=== PATIENT | male | born 2000 | race Caucasian/White ===

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

== ENCOUNTER 2021-10-07 22:47 | Observation (INO) | payer BC, MEDICAID, OTHER ==
[~2021-10-07] VITALS: Ht 177 cm; Wt 57.2 kg
[2021-10-07] MEDS ORDERED: LORazepam 0.5 MG (ATIVAN) TABLET BC STA (22:53)
[2021-10-07] MEDS ORDERED: PANTOPRAZOLE 40 MG (PROTONIX) VIAL IV ONE (23:00)
[2021-10-07] MEDS ORDERED: ONDANSETRON 4 MG/2 ML (SDV) Z0FRAN IVP ONE (23:00)
[2021-10-07 23:13] LABS: BASOPHILS # (AUTO) 0.1 10^3/uL (0.0-0.1); BASOPHILS % (AUTO) 1 % (0-10); EOSINOPHILS # (AUTO) 0.2 10^3/uL (0.0-0.3); EOSINOPHILS % (AUTO) 2 % (0-10); HEMATOCRIT 43 % (40-54); HEMOGLOBIN 15.6 g/dL (13.3-17.7); LYMPHOCYTES # (AUTO) 2.4 10^3/uL (1.0-4.0); LYMPHOCYTES % (AUTO) 21 % (12-44); MEAN CORPUSCULAR HEMOGLOBIN 33 pg (25-34); MEAN CORPUSCULAR HGB CONC 36 g/dL (32-36); MEAN CORPUSCULAR VOLUME 91 fL (80-99); MEAN PLATELET VOLUME 9.9 fL (9.0-12.2); MONOCYTES # (AUTO) 0.9 10^3/uL (0.0-1.0); MONOCYTES % (AUTO) 8 % (0-12); NEUTROPHILS % (AUTO) 69 % (42-75); PLATELET COUNT 269 10^3/uL (130-400); WHITE BLOOD COUNT 11.6 10^3/uL (4.3-11.0)
[2021-10-07 23:16] LABS: ALBUMIN 4.8 GM/DL (3.2-4.5); CHLORIDE 104 MMOL/L (98-107); POTASSIUM 2.9 MMOL/L (3.6-5.0); SODIUM 142 MMOL/L (135-145)
[2021-10-07 23:18] LABS: CALCIUM 9.7 MG/DL (8.5-10.1)
[2021-10-07 23:19] LABS: GLUCOSE 96 MG/DL (70-105); INR 1.1 (0.8-1.4); PROTHROMBIN TIME PATIENT 14.1 SEC (12.2-14.7); TOTAL PROTEIN 7.8 GM/DL (6.4-8.2)
[2021-10-07 23:20] LABS: CARBON DIOXIDE 23 MMOL/L (21-32)
[2021-10-07 23:21] LABS: BILIRUBIN,TOTAL 0.8 MG/DL (0.1-1.0)
[2021-10-07 23:22] LABS: ALKALINE PHOSPHATASE 55 U/L (40-136)
[2021-10-07 23:23] LABS: CREATININE SERUM 1.23 MG/DL (0.60-1.30); GFR ESTIMATED 86
[2021-10-07 23:24] LABS: BUN/CREATININE RATIO 9
[2021-10-07 23:25] LABS: ALANINE AMINOTRANSFERASE 9 U/L (0-55); MAGNESIUM 2.2 MG/DL (1.6-2.4)
[2021-10-07 23:26] LABS: LIPASE 18 U/L (8-78)
[2021-10-08 00:29] LABS: OCCULT BLOOD,GASTRIC FLUID POSITIVE (NEGATIVE)
[2021-10-08] MEDS ORDERED: fentaNYL INJ 100 MCG/2 ML AMP IVP ONE (00:30)
[2021-10-08] MEDS ORDERED: POTASSIUM CL 10MEQ/50ML IVPB 50 ML IV ONE (00:45)
[2021-10-08] MEDS ORDERED: NS IV 1000 ML 1,000 ML IV ONE (00:45)
[2021-10-08] MEDS ORDERED: morphine INJ 10 MG/ML 1ML (SYR OR VIAL) IVP STA (02:01)
--- NOTE | 2021-10-08 02:11 | ED GI ---
General Chief Complaint: Abdominal/GI Problems Stated Complaint: VOMITING BLOOD Nursing Triage Note: pt to room by [facility]. pt states he vomited once this evening while in the shower. pt states it was blood tinged but mostly bile. pt states he has had nausea, abd pain for a week. states he is very anxious on arrival. Source of Information: Patient, EMS Exam Limitations: No Limitations History of Present Illness Date Seen by Provider: Oct 07, 2021 Time Seen by Provider: 22:48 Initial Comments This 21-year-old young man presents to the emergency room with upper abdominal pain and hematemesis that started after he smoked some marijuana. He has had some nausea and abdominal discomfort for about a week. He reports having a thorough work-up at a hospital in [facility] in July during which he had elevated transaminases. He reports testing for hepatitis was negative. He reports having EGD and colonoscopy during that visit as well. Eventually the transaminases improved and he was discharged. This occurred while he was in the and he has subsequently been discharged from service. Patient arrives via EMS. He is in distress with anxiety and is tremoring. He appears pale. Vital signs are stable. He has not established with a primary care provider or surgeon since returning from the . Allergies and Home Medications Allergies Coded Allergies: No Known Drug Allergies (Unverified , 02/27/17) Patient Home Medication List Home Medication List Reviewed: Yes No Active Prescriptions or Reported Meds Review of Systems Review of Systems Constitutional: see HPI EENTM: Other (Sore throat from vomiting) Respiratory: No Symptoms Reported Cardiovascular: No Symptoms Reported Gastrointestinal: See HPI Genitourinary: No Symptoms Reported Musculoskeletal: no symptoms reported Skin: see HPI Psychiatric/Neurological: See HPI Endocrine: No Symptoms Reported Hematologic/Lymphatic: No Symptoms Reported Past Qqqqvyh-Kszjlq-Wtxjpx Hx Patient Social History Tobacco Use?: Yes Tobacco type used: Cigarettes Smoking Status: Current Everyday Smoker Use of E-Cig and/or Vaping dev: No Substance use?: Yes Substance type: Marijuana Substance frequency: Several times a month Alcohol Use?: No Immunizations Up To Date Tetanus Booster (TDap): Less than 5yrs PED Vaccines UTD: Yes Seasonal Allergies Seasonal Allergies: No Past Medical History Surgeries: Yes Abdominal (EGD and colonoscopy) Respiratory: No Cardiac: No Neurological: No Genitourinary: No Gastrointestinal: Yes Liver Disease/Jaundice (Prior history of elevated transaminases) Musculoskeletal: No Endocrine: No HEENT: No Cancer: No Psychosocial: No Integumentary: No Blood Disorders: No Family Medical History No Pertinent Family Hx Physical Exam Vital Signs Vital Signs - First Documented 10/07/21 10/08/21 22:47 01:47 Temp 36.2 Pulse 103 Resp 22 B/P (MAP) 123/85 (98) Pulse Ox 99 O2 Delivery Room Air Capillary Refill : Height/Weight/BMI Height: 5'9.00" Weight: 120lbs. oz. 54.900147tu; 17.00 BMI Method:Stated General Appearance: WD/WN, moderate distress HEENT: PERRL/EOMI, normal ENT inspection, pharynx normal Neck: normal inspection Respiratory: lungs clear, normal breath sounds, no respiratory distress Cardiovascular: regular rate, rhythm, no edema, no murmur Gastrointestinal: normal bowel sounds, soft, tenderness (Upper abdomen) Extremities: normal inspection, no pedal edema Neurologic/Psychiatric: wax pattern repairer II-XII nml as tested, no motor/sensory deficits, alert, oriented x 3, other (Anxious, tremoring) Skin: normal color, warm/dry Progress/Results/Core Measures Results/Orders Lab Results Laboratory Tests Test 10/07/21 22:52 10/08/21 00:09 Range/Units White Blood Count 11.6 H 4.3-11.0 10^3/uL Red Blood Count 4.74 4.30-5.52 10^6/uL Hemoglobin 15.6 13.3-17.7 g/dL Hematocrit 43 40-54 % Mean Corpuscular Volume 91 80-99 fL Mean Corpuscular Hemoglobin 33 25-34 pg Mean Corpuscular Hemoglobin Concent 36 32-36 g/dL Red Cell Distribution Width 11.9 10.0-14.5 % Platelet Count 269 130-400 10^3/uL Mean Platelet Volume 9.9 9.0-12.2 fL Immature Granulocyte % (Auto) 0 % Neutrophils (%) (Auto) 69 42-75 % Lymphocytes (%) (Auto) 21 12-44 % Monocytes (%) (Auto) 8 0-12 % Eosinophils (%) (Auto) 2 0-10 % Basophils (%) (Auto) 1 0-10 % Neutrophils # (Auto) 8.0 H 1.8-7.8 10^3/uL Lymphocytes # (Auto) 2.4 1.0-4.0 10^3/uL Monocytes # (Auto) 0.9 0.0-1.0 10^3/uL Eosinophils # (Auto) 0.2 0.0-0.3 10^3/uL Basophils # (Auto) 0.1 0.0-0.1 10^3/uL Immature Granulocyte # (Auto) 0.0 0.0-0.1 10^3/uL Prothrombin Time 14.1 12.2-14.7 SEC INR Comment 1.1 0.8-1.4 Activated Partial Thromboplast Time 30 24-35 SEC Sodium Level 142 135-145 MMOL/L Potassium Level 2.9 L 3.6-5.0 MMOL/L Chloride Level 104 98-107 MMOL/L Carbon Dioxide Level 23 21-32 MMOL/L Anion Gap 15 H 5-14 MMOL/L Blood Urea Nitrogen 11 7-18 MG/DL Creatinine 1.23 0.60-1.30 MG/DL Estimat Glomerular Filtration Rate 86 BUN/Creatinine Ratio 9 Glucose Level 96 70-105 MG/DL Calcium Level 9.7 8.5-10.1 MG/DL Corrected Calcium 8.5-10.1 MG/DL Magnesium Level 2.2 1.6-2.4 MG/DL Total Bilirubin 0.8 0.1-1.0 MG/DL Aspartate Amino Transf (AST/SGOT) 15 5-34 U/L Alanine Aminotransferase (ALT/SGPT) 9 0-55 U/L Alkaline Phosphatase 55 40-136 U/L C-Reactive Protein High Sensitivity 0.10 0.00-0.50 MG/DL Total Protein 7.8 6.4-8.2 GM/DL Albumin 4.8 H 3.2-4.5 GM/DL Lipase 18 8-78 U/L Serum Alcohol < 10 <10 MG/DL Gastric Fluid Occult Blood POSITIVE H NEGATIVE My Orders Orders - RHINA ROMANO MD Ondansetron Injection (Zofran Injectio (10/07/21 23:00) Pantoprazole Injection (Protonix Injecti (10/07/21 23:00) Lorazepam Tablet (Ativan Tablet) (10/07/21 22:53) Alcohol (10/07/21 22:53) Cbc With Automated Diff (10/07/21 22:53) Comprehensive Metabolic Panel (10/07/21 22:53) Hs C Reactive Protein (10/07/21 22:53) Drug Screen Stat (Urine) (10/07/21 22:53) Lipase (10/07/21 22:53) Magnesium (10/07/21 22:53) Protime With Inr (10/07/21 22:53) Partial Thromboplastin Time (10/07/21 22:53) Ua Culture If Indicated (10/07/21 22:53) Occult Blood,Gastric Fluid (10/08/21 00:17) Fentanyl Inj (Sublimaze Injection) (10/08/21 00:30) Ns Iv 1000 Ml (Sodium Chloride 0.9%) (10/08/21 00:45) Potassium Cl 10meq/50ml Ivpb (Kcl 10 Meq (10/08/21 00:45) Morphine Injection (Morphine Injection (10/08/21 02:01) Medications Given in ED Current Medications Medications Dose Ordered Sig/Gemini Route Start Time Stop Time Status Last Admin Dose Admin Fentanyl Citrate 50 mcg ONCE ONCE IVP 10/08/21 00:30 10/08/21 00:31 DC 10/08/21 00:32 50 MCG Ondansetron HCl 4 mg ONCE ONCE IVP 10/07/21 23:00 10/07/21 23:05 DC 10/07/21 23:03 4 MG Pantoprazole 80 mg ONCE ONCE IV 10/07/21 23:00 10/07/21 23:05 DC 10/07/21 23:04 80 MG Potassium Chloride 50 ml @ 50 mls/hr ONCE ONCE IV 10/08/21 00:45 10/08/21 01:44 DC 10/08/21 00:49 50 MLS/HR Sodium Chloride 1,000 ml @ 125 mls/hr Q8H ONCE IV 10/08/21 00:45 10/08/21 08:44 10/08/21 00:49 125 MLS/HR Vital Signs/I&O 10/07/21 10/08/21 22:47 01:47 Temp 36.2 Pulse 103 78 Resp 22 18 B/P (MAP) 123/85 (98) 104/64 Pulse Ox 99 97 O2 Delivery Room Air 10/08/21 00:00 Intake Total 1000 ml Balance 1000 ml Blood Pressure Mean: 77 Progress Progress Note : Progress Note Patient received a liter of IV fluids as administered by EMS. Zofran was given for nausea. Protonix 80 mg IV was administered for GI protection. Fentanyl was given for pain. He was found to be significantly hypokalemic with a potassium of 3.0. IV replacement was initiated in the ER. Gastric Hemoccult was tested in the lab and was positive. Anxiety was treated with buccal Ativan. Given the significance of his symptoms and his significant hypokalemia, admission was appropriate. He will continue with IV replacement of potassium. Dr. Morse was consulted. Departure Communication (Admissions) Time/Spoke to Admitting Phy: 02:00 Dr. Martin Time/Spoke to Consulting Phy: 02:05 Dr. Morse Impression Primary Impression: Hematemesis Qualified Codes: K92.0 - Hematemesis Additional Impressions: Abdominal pain Qualified Codes: R10.10 - Upper abdominal pain, unspecified Hypokalemia Disposition: ADMITTED INPATIENT Condition: Improved Admissions Decision to Admit Reason: Admit from ER (General) Decision to Admit/Date: Oct 08, 2021 Time/Decision to Admit Time: 02:00 Departure-Patient Inst. Referrals: NO,LOCAL PHYSICIAN (PCP/Family) Primary Care Physician Scripts No Active Prescriptions or Reported Meds RHINA ROMANO MD Oct 08, 2021 02:11
[2021-10-08 03:54] VITALS: BP 120/69
[2021-10-08] MEDS ORDERED: NS IV 1000 ML 1,000 ML IV SCH (04:15)
[2021-10-08] MEDS ORDERED: ONDANSETRON 4 MG/2 ML (SDV) Z0FRAN IV PRN (04:15)
[2021-10-08] MEDS: POTASSIUM CL 10MEQ/50ML IVPB 50 ML IV SCH ×4 (04:27→07:38)
[2021-10-08] MEDS: morphine INJ 4 MG/ML 1 ML (VIAL/SYRINGE) IV PRN ×3 (04:32→12:46)
[2021-10-08 08:00] VITALS: BP 114/57
--- NOTE | 2021-10-08 08:02 | Consultation - Surgery ---
TRICIA ROSS 10/08/21 0802: History of Present Illness History of Present Illness Patient Consulted On(arias/time) 10/08/21 07:56 Time Seen by Provider: 07:45 History of Present Illness Pt is a 21yo male who presented to ER early this morning with hematemesis and abdominal pain. 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 He was reportedly worked up for "anything that could be wrong with the liver" including hepatitis. He had an EGD and colonoscopy in [place] that he says didnt reveal anything. Yesterday he started feeling nauseous and throwing up repeatedly, but it wasn't until he saw blood in his vomit that he came to the ER. Denies having any clue what could have caused the vomiting. Denies any sweats/chills or fever recently. Abdominal pain is improved. Allergies and Home Medications Allergies Coded Allergies: No Known Drug Allergies (Unverified , 02/27/17) Patient Home Medication List No Active Prescriptions or Reported Meds Past Spdtxiw-Jxrqrs-Mbtano Hx Patient Social History Smoking Status: Current Everyday Smoker 2nd Hand Smoke Exposure: No Recent Hopitalizations: No Alcohol Use?: No Substance type: Marijuana Have you traveled recently?: No Immunizations Up To Date Tetanus Booster (TDap): Less than 5yrs PED Vaccines UTD: Yes Seasonal Allergies Seasonal Allergies: No Surgeries History of Surgeries: Yes Surgeries: Abdominal (EGD and colonoscopy) Respiratory History of Respiratory Disorde: No Cardiovascular History of Cardiac Disorders: No Neurological History of Neurological Disord: No Genitourinary History of Genitourinary Disor: No Gastrointestinal History of Gastrointestinal Di: Yes Gastrointestinal Disorders: Liver Disease/Jaundice (Prior history of elevated transaminases) Musculoskeletal History of Musculoskeletal Dis: No Endocrine History of Endocrine Disorders: No HEENT History of HEENT Disorders: No Cancer History of Cancer: No Psychosocial History of Psychiatric Problem: No Integumentary History of Skin or Integumenta: No Blood Transfusions History of Blood Disorders: No Family Medical History Significant Family History: No Pertinent Family Hx Review of Systems-General Constitutional: No chills, No diaphoresis Respiratory: No cough Cardiovascular: No chest pain Gastrointestinal: abdominal pain (mild, diffuse), hematemesis, loss of appetite, nausea, vomiting Physical Exam-General Problems Physical Exam Vital Signs Vital Signs - First Documented 10/07/21 10/08/21 22:47 01:47 Temp 36.2 Pulse 103 Resp 22 B/P (MAP) 123/85 (98) Pulse Ox 99 O2 Delivery Room Air Capillary Refill : General Appearance: WD/WN, no apparent distress HEENT: PERRL/EOMI Neck: supple Respiratory: lungs clear, normal breath sounds, no respiratory distress, no accessory muscle use Cardiovascular: regular rate, rhythm, no murmur Gastrointestinal: normal bowel sounds, non tender, soft Extremities: no pedal edema, normal capillary refill Neurologic/Psychiatric: alert, normal mood/affect, oriented x 3 Skin: normal color, warm/dry Lymphatic: no adenopathy (anterior/posterior cervical) Data Review Labs Laboratory Tests 10/07/21 22:52: White Blood Count 11.6H, Red Blood Count 4.74, Hemoglobin 15.6, Hematocrit 43, Mean Corpuscular Volume 91, Mean Corpuscular Hemoglobin 33, Mean Corpuscular Hemoglobin Concent 36, Red Cell Distribution Width 11.9, Platelet Count 269, Mean Platelet Volume 9.9, Immature Granulocyte % (Auto) 0, Neutrophils (%) (Auto) 69, Lymphocytes (%) (Auto) 21, Monocytes (%) (Auto) 8, Eosinophils (%) (Auto) 2, Basophils (%) (Auto) 1, Neutrophils # (Auto) 8.0H, Lymphocytes # (Auto) 2.4, Monocytes # (Auto) 0.9, Eosinophils # (Auto) 0.2, Basophils # (Auto) 0.1, Immature Granulocyte # (Auto) 0.0, Prothrombin Time 14.1, INR Comment 1.1, Activated Partial Thromboplast Time 30, Sodium Level 142, Potassium Level 2.9L, Chloride Level 104, Carbon Dioxide Level 23, Anion Gap 15H, Blood Urea Nitrogen 11, Creatinine 1.23, Estimat Glomerular Filtration Rate 86, BUN/Creatinine Ratio 9, Glucose Level 96, Calcium Level 9.7, Corrected Calcium , Magnesium Level 2.2, Total Bilirubin 0.8, Aspartate Amino Transf (AST/SGOT) 15, Alanine Aminotransferase (ALT/SGPT) 9, Alkaline Phosphatase 55, C-Reactive Protein High Sensitivity 0.10, Total Protein 7.8, Albumin 4.8H, Lipase 18, Serum Alcohol < 10 10/08/21 00:09: Gastric Fluid Occult Blood POSITIVEH Assessment/Plan Assessment/Plan Assessment/Plan Hematemesis Abdominal pain Hypokalemia Pt receiving IV fluids/electrolytes and is currently not in distress. Possible mirian-bond tear so we will evaluate with EGD today. Need to obtain records from [place] regarding the patients workup a few weeks ago. Recent travel to [place] and large elevation in liver enzymes is concerning for hepatitis, but patient did not seem to be sure if they found anything at [place]. TRUDY MORSE DO 10/08/21 1153: History of Present Illness History of Present Illness Time Seen by Provider: 11:15 History of Present Illness Surgery asked to consult regarding Hematemesis. HPI per ED: This 21-year-old young man presents to the emergency room with upper abdominal pain and hematemesis that started after he smoked some marijuana. He has had some nausea and abdominal discomfort for about a week. He reports having a thorough work-up at a hospital in [facility] in July during which he had elevated transaminases. He reports testing for hepatitis was negative. He reports having EGD and colonoscopy during that visit as well. Eventually the transaminases improved and he was discharged. This occurred while he was in the and he has subsequently been discharged from service. Patient arrives via EMS. He is in distress with anxiety and is tremoring. He appears pale. Vital signs are stable. He has not established with a primary care provider or surgeon since returning from the . When I spoke to pt this am, he stated that he hasn't had a vomiting episode since appx August 07. He had some abdominal pain start after vomiting yest erday; he had vomiting for about an hour. "At first it was clear, like the stuff I was drinking. Then I started dry heaving and then I saw blood when I vomited.". Allergies and Home Medications Allergies Coded Allergies: No Known Drug Allergies (Unverified , 02/27/17) Patient Home Medication List Home Medication List Reviewed: Yes No Active Prescriptions or Reported Meds Past Rrukstu-Fzhvtt-Afmucg Hx Patient Social History Smoking Status: Current Everyday Smoker Type Used: Cigarettes Alcohol Use?: No Substance type: Marijuana Surgeries History of Surgeries: Yes (EGD and colonoscopy) Respiratory History of Respiratory Disorde: No Cardiovascular History of Cardiac Disorders: No Neurological History of Neurological Disord: No Genitourinary History of Genitourinary Disor: No Gastrointestinal History of Gastrointestinal Di: Yes Gastrointestinal Disorders: Liver Disease/Jaundice, Gastrointestinal Bleed Musculoskeletal History of Musculoskeletal Dis: No Endocrine History of Endocrine Disorders: No HEENT History of HEENT Disorders: No Cancer History of Cancer: No Psychosocial History of Psychiatric Problem: No Integumentary History of Skin or Integumenta: No Family Medical History Significant Family History: Other Conditions/Hx (denied DM in either parent) Review of Systems-General Constitutional: No chills, No diaphoresis EENTM: throat pain (from vomiting); No double vision, No eye pain, No mouth swelling, No epistaxis Respiratory: No cough, No dyspnea on exertion, No short of breath Cardiovascular: No chest pain, No palpitations Gastrointestinal: abdominal pain (mild, diffuse), hematemesis, loss of appetite, nausea, vomiting Genitourinary: No dysuria, No frequency, No hematuria Musculoskeletal: No joint pain, No joint swelling, No muscle pain Skin: No change in color, No change in hair/nails Psychiatric/Neurological: Denies Anxiety, Denies Depressed, Denies Seizure, Denies Tremors Physical Exam-General Problems Physical Exam General Appearance: WD/WN, no apparent distress Eyes: Bilateral Eye PERRL, Bilateral Eye EOMI HEENT: pharynx normal; No scleral icterus (R), No scleral icterus (L) Neck: non-tender, supple Respiratory: lungs clear, normal breath sounds, no respiratory distress, no accessory muscle use Cardiovascular: regular rate, rhythm, no murmur Gastrointestinal: normal bowel sounds, non tender, soft, no organomegaly Back: no CVA tenderness, no vertebral tenderness Extremities: no pedal edema, no calf tenderness, normal capillary refill Neurologic/Psychiatric: line staker II-XII nml as tested, alert, normal mood/affect, oriented x 3 Skin: normal color, warm/dry Lymphatic: no adenopathy (anterior/posterior cervical,axillary) Assessment/Plan Assessment/Plan Assessment/Plan Hematemesis Abdominal pain Hypokalemia Pt receiving IV fluids/electrolytes and is currently not in distress. Most likely the hematemesis was from a mirian-bond tear; would feed pt and send him home. Can schedule EGD to evaluate as an outpt. Need to obtain records from [facility] regarding the patients workup; he states he has everything in a folder. Recent travel to [place] and large elevation in liver enzymes is concerning for hepatitis, but patient did not seem to be sure if they found anything during work-up. He stated he needed a Liver biopsy and MRI of "Liver and Pancreas, before I can go back and be deployed". This work-up can also be done outpt. Supervisory-Addendum Brief Verification & Attestation Participated in pt care: history, MDM, physical Personally performed: exam, history, MDM, supervision of care Care discussed with: Medical Student Procedures: n/a Verification and Attestation of Medical Student E/M Service A medical student performed and documented this service. I then reviewed and verified all information documented by the medical student and made modifications to such information, when appropriate. I personally performed a physical exam, medical decision making and then discussed any differences between the notes and made revisions as necessary to create one note. Trudy Morse , 10/08/21 , 11:57 TRICIA ROSS Oct 08, 2021 08:02 TRUDY MORSE DO Oct 08, 2021 11:53
[2021-10-08] MEDS ORDERED: PANTOPRAZOLE 40 MG (PROTONIX) VIAL IV SCH (09:00)
[2021-10-08 09:22] LABS: BASOPHILS # (AUTO) 0.1 10^3/uL (0.0-0.1); BASOPHILS % (AUTO) 1 % (0-10); EOSINOPHILS # (AUTO) 0.4 10^3/uL (0.0-0.3); EOSINOPHILS % (AUTO) 3 % (0-10); HEMATOCRIT 36 % (40-54); HEMOGLOBIN 13.1 g/dL (13.3-17.7); LYMPHOCYTES # (AUTO) 3.1 10^3/uL (1.0-4.0); LYMPHOCYTES % (AUTO) 24 % (12-44); MEAN CORPUSCULAR HEMOGLOBIN 33 pg (25-34); MEAN CORPUSCULAR HGB CONC 36 g/dL (32-36); MEAN CORPUSCULAR VOLUME 91 fL (80-99); MEAN PLATELET VOLUME 9.8 fL (9.0-12.2); MONOCYTES # (AUTO) 1.1 10^3/uL (0.0-1.0); MONOCYTES % (AUTO) 8 % (0-12); NEUTROPHILS # (AUTO) 8.3 10^3/uL (1.8-7.8); NEUTROPHILS % (AUTO) 64 % (42-75); PLATELET COUNT 209 10^3/uL (130-400)
[2021-10-08 09:39] LABS: ALBUMIN 3.6 GM/DL (3.2-4.5); POTASSIUM 4.1 MMOL/L (3.6-5.0)
[2021-10-08 09:41] LABS: CALCIUM 8.8 MG/DL (8.5-10.1)
[2021-10-08 09:42] LABS: TOTAL PROTEIN 5.8 GM/DL (6.4-8.2)
[2021-10-08 09:44] LABS: BILIRUBIN,TOTAL 1.5 MG/DL (0.1-1.0)
[2021-10-08 09:45] LABS: CREATININE SERUM 0.91 MG/DL (0.60-1.30)
[2021-10-08 11:42] VITALS: BP 114/57
--- NOTE | 2021-10-08 13:54 | Short Stay Summary-Hospitalist ---
History of Present Illness HPI/Chief Complaint Patient is a 21-year-old male with past medical history of acute hepatitis who presented to the emergency department due to vomiting blood. He states that he had some abdominal pain and vomiting after smoking marijuana yesterday. He reports nausea for 1 week. He describes his vomit as dark in color as if "coffee grounds were spread out" and with streaks of blood. He states he had a similar episode when he was in [place] where his liver enzymes were very elevated and he had a negative hepatitis panel then and an EGD and colonoscopy. I believe the procedures were done at a base in [place] but I am not quite clear on this. He states he is supposed to get an outpatient work-up for liver biopsy and a liver MRI prior to being able to return to the [employer]. He is requesting a diet order and to be able to discharge home and follow-up as an outpatient if able. Source: patient Date Seen 10/08/21 Time Seen by a Provider: 10:45 Attending Physician No,Local Physician PCP Admitting Physician: Jose Martin MD Attending Physician: Jose Martin MD Referring Physician Date of Admission Oct 08, 2021 at 02:08 Home Medications & Allergies Home Medications Reviewed patient Home Medication Reconciliation performed by pharmacy medication reconciliations motorcycle technician and/or nursing. Patients Allergies have been reviewed. Allergies Allergies Coded Allergies No Known Drug Allergies (Unverified02/27/17) Past Pdsfazs-Bfwgbq-Hfmhpm Hx Patient Social History Tobacco Use?: Yes Tobacco type used: Cigarettes Smoking Status: Current Everyday Smoker Smokeless type used: Chew Smokeless Tobacco Frequency: Former User Use of E-Cig and/or Vaping dev: No Substance use?: Yes Substance type: Marijuana Substance frequency: Rarely Alcohol Use?: No Pt feels they are or have been: No Immunizations Up To Date PED Vaccines UTD: Yes Seasonal Allergies Seasonal Allergies: No Current Status Advance Directives: Unable to obtain Communicates: Verbally Primary Language: Kyrgyz Preferred Spoken Language: Kyrgyz Is interpretation needed?: No Implanted or Applied Medical D: None Past Medical History Surgeries: Abdominal (EGD and colonoscopy) Liver Disease/Jaundice, Gastrointestinal Bleed Blood Disorders: No Family Medical History Other Conditions/Hx (denied DM in either parent) Review of Systems Constitutional: no symptoms reported EENTM: no symptoms reported Respiratory: no symptoms reported Cardiovascular: no symptoms reported Gastrointestinal: see HPI Genitourinary: no symptoms reported Musculoskeletal: no symptoms reported Skin: no symptoms reported Psychiatric/Neurological: No Symptoms Reported Physical Exam Physical Exam Vital Signs Vital Signs - First Documented 10/07/21 10/08/21 22:47 01:47 Temp 36.2 Pulse 103 Resp 22 B/P (MAP) 123/85 (98) Pulse Ox 99 O2 Delivery Room Air Capillary Refill : Height, Weight, BMI Height: 5'9.00" Weight: 120lbs. oz. 54.234870nz; 18.25 BMI Method:Stated General Appearance: No Apparent Distress, Thin Eyes: Bilateral Eye PERRL, Bilateral Eye EOMI HEENT: PERRL/EOMI, Moist Mucous Membranes; No Scleral Icterus (L), No Scleral Icterus (R) Respiratory: Lungs Clear, No Accessory Muscle Use, No Respiratory Distress Cardiovascular: Regular Rate, Rhythm, No JVD, No Murmur Gastrointestinal: Normal Bowel Sounds, Non Tender, Soft Extremity: Normal Capillary Refill, No Calf Tenderness, No Pedal Edema Neurologic/Psychiatric: Alert, Oriented x3, Normal Mood/Affect Skin: Normal Color, Warm/Dry Results Results/Procedures Labs Laboratory Tests 10/07/21 22:52 10/08/21 09:15 Patient resulted labs reviewed. Short Stay Diagnosis Discharge Diagnosis-Short Stay Admission Diagnosis hematemesis Final Discharge Diagnosis hematemesis Conclusion Plan hematemesis Hgb stable Surgery consulted, appreciate recs Continue PPI Plan for outpatient scope Recommended follow up with Dr Lo in [place] where he lives for follow up and continued workup as requested by the [facility] Diagnosis/Problems Diagnosis/Problems (1) Hematemesis Status: Acute Qualifiers: Qualified Codes: K92.0 - Hematemesis (2) Abdominal pain Status: Acute Qualifiers: Qualified Codes: R10.10 - Upper abdominal pain, unspecified (3) Hypokalemia Status: Acute ADILIA RIOS MD Oct 08, 2021 13:54
[2021-10-08] MEDS ORDERED: PANT40TA2 PO (13:55)
--- NOTE | 2021-10-08 13:57 | Discharge Inst-Simple/Standard ---
Discharge Inst-Standard Discharge Medications New, Converted or Re-Newed RX: Transmitted to Pharmacy Patient Instructions/Follow Up Plan of Care/Instructions/FU: Please continue to take your medications as written. Please follow up with your primary care doctor to follow up this hospital stay. Activity as Tolerated: Yes Discharge Diet: No Restrictions Return to The Hospital For: Chest pain, abdominal pain, nausea, vomiting, blood in stool or vomit, shortness of breath, fever, weakness, if you feel you are getting worse. ADILIA RIOS MD Oct 08, 2021 13:57
[2021-10-08 15:20] VITALS: BP 114/57
== END 2021-10-08 15:20 | disposition home or self-care (01) ==
LOC: EDUNIT# 22:47 → ER 22:48 → 4TH 22:49 → UNDOADMOB 10-08 02:08 → UNDODISOB 10-08 15:20
PROVIDERS: ADMIT Internal Medicine; ATTEND Internal Medicine
DX: K92.0 Hematemesis (principal); F17.220 Nicotine dependence, chewing tobacco, uncomplicated; E87.6 Hypokalemia
CPT/HCPCS: 80053 ×2; 82271; 83690; 83735; 85025 ×2; 85610; 85730; 86141; 96366; 96374; 96375; 96376; 99284; G0378; G0480; 36415; 80320

== ENCOUNTER → 2021-11-06 | Outpatient (CLI) | payer OTHER ==
[~2021-11-06] MED LIST: PANT40TA2 PO
[2021-11-06 09:36] LABS: BASOPHILS # (AUTO) 0.1 10^3/uL (0.0-0.1); BASOPHILS % (AUTO) 1 % (0-10); EOSINOPHILS # (AUTO) 0.2 10^3/uL (0.0-0.3); EOSINOPHILS % (AUTO) 4 % (0-10); HEMATOCRIT 46 % (40-54); HEMOGLOBIN 15.5 g/dL (13.3-17.7); LYMPHOCYTES % (AUTO) 39 % (12-44); MEAN CORPUSCULAR HEMOGLOBIN 32 pg (25-34); MEAN CORPUSCULAR HGB CONC 34 g/dL (32-36); MEAN CORPUSCULAR VOLUME 96 fL (80-99); MEAN PLATELET VOLUME 9.4 fL (9.0-12.2); MONOCYTES # (AUTO) 0.4 10^3/uL (0.0-1.0); MONOCYTES % (AUTO) 7 % (0-12); NEUTROPHILS # (AUTO) 2.5 10^3/uL (1.8-7.8); NEUTROPHILS % (AUTO) 49 % (42-75); PLATELET COUNT 289 10^3/uL (130-400); WHITE BLOOD COUNT 5.1 10^3/uL (4.3-11.0)
[2021-11-06 09:56] LABS: ERYTHROCYTE SEDIMENTATION RATE 2 MM/HR (0-15)
[2021-11-06 10:05] LABS: PROTHROMBIN TIME PATIENT 13.5 SEC (12.2-14.7)
[2021-11-06 10:14] LABS: ALBUMIN 4.4 GM/DL (3.2-4.5); BILIRUBIN,TOTAL 0.5 MG/DL (0.1-1.0); CALCIUM 9.7 MG/DL (8.5-10.1); CREATININE SERUM 0.99 MG/DL (0.60-1.30); POTASSIUM 3.9 MMOL/L (3.6-5.0); TOTAL PROTEIN 7.2 GM/DL (6.4-8.2)
[2021-11-06 21:22] LABS: HEPATITIS C ANTIBODY C Non-Reactive (Non-Reactive)
== END ==
LOC: LAB 09:06
PROVIDERS: ATTEND Orthopaedic Surgery Orthopaedic Surgery of the Spine
DX: R74.01 Elevation of levels of liver transaminase levels (principal)
CPT/HCPCS: 36415; 80053; 80074; 82728; 83540; 83550; 83605; 85025; 85610; 85652; 85730